=== PATIENT | female | born 1955 | race Caucasian/White ===

== ENCOUNTER 2021-09-08 14:16 | Outpatient (CLI) | payer OTHER, SELFPAY ==
[2021-09-08] MEDS: 0.9% Saline Lock 10 ML Syringe IV (14:14)
[2021-09-08 14:25] VITALS: BP 147/73; PULSE 104; RESP 18; TEMP 36.6; O2SAT 94; BMI 30.9
[2021-09-08 15:09] VITALS: BP 111/74; PULSE 75; RESP 16; TEMP 36.6; O2SAT 95
[2021-09-08 16:08] VITALS: BP 137/64; PULSE 102; RESP 16; TEMP 36.6; O2SAT 96
== END 2021-09-08 16:10 | disposition home or self-care (01) ==
LOC: MS3OUT 14:19 → MS3 14:20
PROVIDERS: PCP Family Medicine; Referring Provider Nurse Practitioner Adult Health; Visit Provider Nurse Practitioner Adult Health
DX: Z23 Encounter for immunization (principal); U07.1 COVID-19
CPT/HCPCS: M0245; Q0245